=== PATIENT | male | born 1985 | race Caucasian/White ===

== ENCOUNTER 2018-06-13 07:50 | Emergency (ER) | payer BC, SELFPAY ==
[2018-06-13 07:51] VITALS: BP 147/92; PULSE 74; RESP 14; TEMP 36.4; O2SAT 100; BMI 27.3
--- NOTE | 2018-06-13 08:20 | RAD_ITS ---
STUDY: X-RAY CHEST REASON FOR EXAM: Male, 33 years old. Headache, shortness of breath TECHNIQUE: PA and lateral views of the chest. COMPARISON: 09/03/2014 FINDINGS: The lungs are clear and expanded. There is no demonstrated pleural abnormality. Normal size heart. Normal mediastinum and loretta. Normal visualized pulmonary arteries. Normal visualized aortic arch and descending thoracic aorta. Normal visualized thoracic spine. Normal visualized ribs, clavicles, and shoulders. There is no demonstrated abnormality of the visualized soft tissue structures of the upper abdomen. RAD/Chest PA and Lateral IMPRESSION: Normal x-ray examination of the chest. Electronically Signed: Braxton Dumont DO at 9:30 EDT Tel , Service support ,
[2018-06-13] MEDS: proCHLORPERazine 10 MG/2 ML Vial IV (08:36)
[2018-06-13] MEDS: 0.9% Normal Saline 1,000 ML 999 ML IV (08:37)
[2018-06-13] MEDS: DiphenhydrAMINE 50 MG/ML Syringe 25 MG IV (08:37)
[2018-06-13] MEDS: Ketorolac 30 MG/ML Syringe IV (08:37)
--- NOTE | 2018-06-13 09:39 | ED.VISSUMM ---
- ER Visit Summary Date of Service: 06/13/18 Chief Complaint: Headache History of Present Illness: The patient is a 33 M who presents with a headache. Headache began about 2 days ago and gradually worsened over the course of the day. He currently rates his pain as severe. He reports nausea lightheadedness and light sensitivity. No numbness tingling or weakness. No vomiting. No fevers. No direct injury trauma or fall. He also complains of some muscle aches and joint aches. He reports some congestion rhinorrhea cough and shortness of breath with exertion. Physical Examination: Afebrile vitals are unremarkable Moist mucous membranes Heart regular rate and rhythm Lungs are clear Abdomen soft Alert oriented No focal or lateralizing neurological deficits normal strength and sensation no ataxia Neck is supple with no meningismus Test Results: Two-view chest x-ray normal Emergency Department Course and Treatment: Patient's presentation is suggestive of viral syndrome with migraine. He has no meningeal signs. He is not febrile. He has a normal neurological exam. Chest x-ray was obtained given his report of cough and shortness of breath. This is normal. He was treated with IV saline, Toradol, Compazine, Benadryl with complete resolution of symptoms. On reevaluation he states he feels good and has absolutely no pain. He was advised to follow-up as an outpatient. He understands return for new or worsening symptoms and was instructed on specific signs and symptoms to monitor for and was discharged home. Treatment Plan: [] Disposition: Discharge Impression: Headache Viral syndrome This note was generated with [employer] dictation software. It may contain incorrect words, spelling, and punctuation that were not noted in review of the chart prior to signing ED Disposition - Plan for ED Patient: Chief Complaint: Headache Referrals: Care Physician,No Primary [Primary Care Provider] -
--- NOTE | 2018-06-13 09:41 | ED.DEP ---
ED Disposition - Plan for ED Patient: Chief Complaint: Headache Instructions: ED Headache Migraine, ED Viral Syndrome Referrals: Care Physician,No Primary [Primary Care Provider] -
[2018-06-13 09:57] VITALS: BP 118/63; PULSE 64; RESP 17; O2SAT 97
== END 2018-06-13 09:58 | disposition home or self-care (01) ==
LOC: ED 08:26
PROVIDERS: Emergency Provider Emergency Medicine
DX: R51 Headache (principal); B34.9 Viral infection, unspecified; R68.83 Chills (without fever); J34.89 Other specified disorders of nose and nasal sinuses; R06.09 Other forms of dyspnea; R05 Cough; R11.0 Nausea; M79.1 Myalgia; R42 Dizziness and giddiness; R09.81 Nasal congestion; H53.149 Visual discomfort, unspecified; Z72.0 Tobacco use
CPT/HCPCS: 71046; 96361; 96374; 96375; 99283; J7030; A4216

== ENCOUNTER 2019-02-23 15:25 | Emergency (ER) | payer BC, SELFPAY ==
[2019-02-23 15:25] VITALS: BP 138/92; PULSE 99; RESP 16; TEMP 36.9; O2SAT 97; BMI 29.3
--- NOTE | 2019-02-23 16:14 | RAD_ITS ---
STUDY: X-RAY - CERVICAL SPINE REASON FOR EXAM: Male, 33 years old. Neck and back pain TECHNIQUE: 3 view(s) of the cervical spine were obtained. COMPARISON: None FINDINGS: Normal anterior atlantoaxial articulation. Normal odontoid process. Normal cervical lordosis. Normal vertebral bodies and endplates. Normal disc space heights. No subluxation. The soft tissue structures are unremarkable. RAD/Cerv Spine 2 or 3 Views IMPRESSION: Normal x-ray examination of the visualized cervical spine. Electronically Signed: Khurram Ramirez MD at 16:45 EDT , Service support ,
--- NOTE | 2019-02-23 16:14 | RAD_ITS ---
STUDY: X-RAY - THORACIC SPINE REASON FOR EXAM: Male, 33 years old. Back pain for a couple days TECHNIQUE: 3 view(s) of the thoracic spine were obtained. COMPARISON: None. FINDINGS: Normal kyphosis of the thoracic spine. There is no substantial scoliosis. There is multilevel endplate spondylosis of the thoracic vertebrae. Normal disc space heights. The soft tissue structures are unremarkable. RAD/Thoracic Spine 3 Views IMPRESSION: Mild thoracic spondylosis. Otherwise normal. Electronically Signed: Khurram Ramirez MD at 16:45 EDT , Service support ,
--- NOTE | 2019-02-23 16:17 | ED.DCSUM_ITS ---
- ER Visit Summary Date of Service: 02/23/19 Chief Complaint: Neck and back pain History of Present Illness: The patient is a 33 M presenting with neck and back pain. Patient states this started approximately a month ago. He has pain in his lower neck and upper back when he lifts his head and turns his head. He states he does a lot of turning left and right while at work. He has taken aspirin at home with minimal relief. He states around a month ago he went to [facility] and was given muscle relaxers which improved his pain. He denies numbness or weakness. Denies fever. Denies trauma. He does not currently have a primary care physician. He denies other complaints. Physical Examination: Vitals are stable. Patient is afebrile. Alert no acute distress. HEENT exam is unremarkable. Neck is bilateral paraspinal cervical muscle tenderness, no midline tenderness Lungs are clear and equal bilaterally. Heart is regular rate and rhythm. Back: Thoracic paraspinal muscle tenderness with no midline tenderness Extremities are unremarkable. Skin is warm and dry. No focal neurologic deficit. Normal strength and sensation Remainder of exam is unremarkable. Emergency Department Course and Treatment: Patient was given Toradol, Norflex IM. Cervical spine x-ray shows no acute process. Thoracic spine x-ray showed mild thoracic spondylosis. Otherwise normal. Patient is given prescription for Naprosyn and Flexeril. He is advised to follow-up with Dr. Rodriguez loss prevention agent for no doc. Advised return to ED for worsening complaints. Disposition: Discharge home Impression: Cervical and thoracic strain This note was generated with [employer] dictation software. It may contain incorrect words, spelling, and punctuation that were not noted in review of the chart prior to signing ED Disposition - Plan for ED Patient: Instructions: ED Neck Back Pain General Prescriptions: Naproxen [Naprosyn] 500 mg PO BID PRN #20 tablet Cyclobenzaprine [Flexeril] 10 mg PO TID PRN #20 tablet PRN Reason: Muscle Spasm Referrals: Sukumar Rodriguez III, MD [STAFF PHYSICIAN] -
[2019-02-23] MEDS: Orphenadrine 60 MG/2 ML Ampul IM (16:39)
[2019-02-23] MEDS: Ketorolac 60 MG/2 ML Vial IM (16:39)
--- NOTE | 2019-02-23 16:51 | ED.DEP ---
ED Disposition - Plan for ED Patient: Instructions: ED Neck Back Pain General Prescriptions: Naproxen [Naprosyn] 500 mg PO BID PRN #20 tablet Cyclobenzaprine [Flexeril] 10 mg PO TID PRN #20 tablet PRN Reason: Muscle Spasm Referrals: Sukumar Rodriguez III, MD [STAFF PHYSICIAN] -
[2019-02-23 16:57] VITALS: PULSE 74; RESP 18; O2SAT 99
== END 2019-02-23 16:59 | disposition home or self-care (01) ==
LOC: ED 16:49
PROVIDERS: Emergency Provider Emergency Medicine
DX: S16.1XXA Strain of muscle, fascia and tendon at neck level, initial encounter (principal); S29.012A Strain of muscle and tendon of back wall of thorax, initial encounter; X58.XXXA Exposure to other specified factors, initial encounter; Y93.9 Activity, unspecified; Y92.9 Unspecified place or not applicable; Z72.0 Tobacco use
CPT/HCPCS: 72040; 72072; 96372; 99282

== ENCOUNTER 2019-04-27 23:18 | Emergency (ER) | payer BC, SELFPAY ==
[2019-04-27 23:19] VITALS: BP 137/98; PULSE 87; RESP 17; TEMP 36.6; O2SAT 99; BMI 24.4
--- NOTE | 2019-04-27 23:48 | ED.VISSUMM ---
- ER Visit Summary Date of Service: 04/27/19 Chief Complaint: Back pain History of Present Illness: The patient is a 33 M with back pain. Chief complaints of chest pain, he denies any chest pain his pain is left back region and it usually starts about 30 minutes to an hour into his shift he does quite a bit of repetitive motion at work. It is worse with twisting turning or moving his back in certain directions. Physical Examination: Otherwise normal exam there is tenderness to palpation over the mid trapezius region, there are a few trigger points, pain is quite mechanical and easily reproducible. Emergency Department Course and Treatment: I showed the patient some stretches, I will treat with muscle relaxants. No need for x-rays or cardiac work-up. Stable condition Impression: [Thoracic strain] This note was generated with [employer] dictation software. It may contain incorrect words, spelling, and punctuation that were not noted in review of the chart prior to signing ED Disposition - Plan for ED Patient: Disposition: Home or Assisted Living Instructions: ED Strain Muscle Ext Prescriptions: Naproxen [Naprosyn] 500 mg PO BID PRN #20 tab cycloBENZAPRine HCl [Flexeril] 10 mg PO TID PRN #20 tab PRN Reason: Muscle Spasm Referrals: Care Physician,No Primary [Primary Care Provider] - 3-5 Days
[2019-04-27 23:56] VITALS: BP 136/70; PULSE 81; RESP 18; O2SAT 96
== END 2019-04-27 23:57 | disposition home or self-care (01) ==
PROVIDERS: Emergency Provider Emergency Medicine
DX: S29.012A Strain of muscle and tendon of back wall of thorax, initial encounter (principal); X50.3XXA Overexertion from repetitive movements, initial encounter; Y93.9 Activity, unspecified; Y92.89 Other specified places as the place of occurrence of the external cause; Y99.0 Civilian activity done for income or pay; Z72.0 Tobacco use
CPT/HCPCS: 99282

== ENCOUNTER 2019-11-04 12:30 | Emergency (ER) | payer SELFPAY ==
[2019-11-04 12:30] VITALS: BP 136/67; PULSE 99; RESP 18; TEMP 36.6; O2SAT 98; BMI 25.0
--- NOTE | 2019-11-04 12:57 | ED.VIS.GEN ---
History of Present Illness Chief Complaint: General Illness Informant: Patient Onset: Days - 2 Current Severity: Moderate Maximum Severity: Moderate Narrative: Patient has a runny nose, cough and congestion, he developed a gradual onset of headache that started few days ago, he has had prior chronic headaches he describes them as aching although sharp stabbing headaches associated with some photophobia but no neurological symptoms. Past Medical History - Allergies and Home Meds Allergies/Adverse Reactions: Allergies No Known Allergies Allergy (Verified 11/04/19 12:32) Primary Care Physician: Care Physician,No Primary [Primary Care Provider] - Past Medical History: - - Headaches Smoking Status: Current every day smoker Review of Systems General: Denies: Fever Eyes: Reports: - - Photophobia. Denies: Visual changes - bilaterally Cardiovascular: Denies: Chest pain Gastrointestinal: Reports: Nausea. Denies: Abdominal pain Neurological: Reports: Headache. Denies: Weakness, Parasthesia, Numbness Physical Exam Vital Signs/Narrative: Vital Signs Temp Pulse Resp BP Pulse Ox 11/04/19 12:30 98 F 99 18 136/67 H 98 General: Well nourished, No Acute Distress Head: Normocephalic, Atraumatic Eyes: Perrl, EOMI ENT: Moist mucous membranes, - - There is rhinorrhea, swollen nasal turbinates and some postnasal drip. Cardiovascular: Regular rate, Regular rhythm Respiratory: No distress, CTA bilaterally Abdomen: Soft, Nontender Back: Nontender, Normal Inspection Extremities: Nontender, No edema Skin: Normal color, No rash Neurological: Alert, Oriented x3, Normal Strength, Normal Sensation, Normal DTR Diagnostic/Tx/Re-eval - Medical Decision Making Patient has a upper respiratory infection which is likely viral, he also has a gradual onset of his chronic recurrent cephalgia. I will treat his headache, otherwise I told him the the upper respiratory symptoms is likely viral and he can get symptomatic treatment. Discharge stable condition ED Disposition - Plan for ED Patient: Disposition: Home or Assisted Living Diagnosis: Headache Instructions: Migraines and Cluster Headaches Prescriptions: Naproxen [Naprosyn] 500 mg PO BID PRN #20 tab Prescription Printed Referrals: Care Physician,No Primary [Primary Care Provider] - 3-5 Days
[2019-11-04] MEDS: Ketorolac 30 MG/ML Syringe IM (13:05)
[2019-11-04] MEDS: DiphenhydrAMINE 50 MG/ML Syringe 25 MG IM (13:05)
[2019-11-04] MEDS: Metoclopramide 10 MG/2 ML Vial IM (13:05)
== END 2019-11-04 13:21 | disposition home or self-care (01) ==
PROVIDERS: Emergency Provider Emergency Medicine
DX: R51 Headache (principal); J06.9 Acute upper respiratory infection, unspecified; F17.200 Nicotine dependence, unspecified, uncomplicated
CPT/HCPCS: 99282

== ENCOUNTER 2022-04-26 14:28 | Emergency (ER) | payer MEDICAID, SELFPAY ==
[2022-04-26 14:29] VITALS: BP 128/85; PULSE 76; RESP 16; TEMP 36.3; O2SAT 100; BMI 31.8
--- NOTE | 2022-04-26 14:37 | ED.VIS.BACK ---
HPI History of Present Illness Chief Complaint: Back Informant: patient Onset/Context/Timing Onset: Yesterday Context: Gradual Onset Injury: - (Lifting heavy objects) Timing: Continuous (Continuous pain but waxes and wanes in severity) Quality: Aching and Throbbing Location: Thoracic Current Severity: Mild Maximum Severity: Moderate Narrative Narrative: Patient presents secondary to right-sided upper back pain. He states he was lifting some heavy objects yesterday and felt some tightness afterwards. He drives a semi-truck for work and his employer stated he had to have a note stating he was okay to go back to work. He denies weakness or paresthesias. PFSH PFSH Medical History no medical history no medical history Home Medications naproxen 500 mg PO BID PRN #20 tab 11/04/19 [Rx Last Taken Unknown] naproxen [Naprosyn] 500 mg PO BID PRN #20 tab 04/26/22 [Rx Last Taken Unknown] Allergy/AdvReac Type Severity Reaction Status Date / Time No Known Allergies Allergy Verified 04/26/22 14:29 Social History Smoking Status: Current every day smoker tobacco type: cigarettes ROS ROS ED Constitutional Constitutional ED: Denies chills or fever(s) Eyes Eyes: Denies change in vision ENT ENT ED: Denies sore throat Cardiovascular Cardiovascular: Denies chest pain Respiratory/Chest Respiratory/Chest: Denies cough or dyspnea Gastrointestinal Gastrointestinal: Denies abdominal pain, nausea or vomiting Musculoskeletal Musculoskeletal: Reports back pain Integumentary Denies rash Neurologic Neurologic: Denies headache(s), paresthesias or weakness Allergic/Immunologic Allergic/Immunologic ED: Denies urticaria EXAM Physical Exam Const Vital Signs: 04/26/22 14:29 04/26/22 14:49 Temperature 97.4 F L Temperature Source Temporal Pulse Rate 76 84 Respiratory Rate 16 19 H Blood Pressure 128/85 H Blood Pressure Mean 99 Pulse Ox 100 99 Oxygen Delivery Method Room Air Positive well nourished and well developed General Appearance ED: well developed HEENT Reports moist mucous membranes Eyes PERRL and EOMs intact bilaterally Neck supple Resp normal respiratory effort and clear to auscultation bilaterally Cardio regular rate and regular rhythm GI normal to inspection, nondistended, normoactive bowel sounds, soft to palpation and non-tender Back/Spine Back/Spine Narrative: Reproducible tenderness in the right thoracic region medial and inferior to the scapula. No overlying skin changes. Full range of motion of the extremities without difficulty. Extremity normal to inspection Neuro oriented x3 Sensorium / Orientation: alert MDM MDM Treatment and Re-Evaluation Narrative: Patient will be given a Lidoderm patch here and prescription for naproxen will be written. He is written a note that he can return to work tomorrow. Discharge Plan Triage Chief Complaint: Back ED Provider: Jennifer Aden Dx/Rx/DC Orders Clinical Impression: Musculoskeletal back pain Instructions: ED Back Pain (Acute or Chronic) Prescriptions: New naproxen [Naprosyn] 500 mg tablet 500 mg PO BID PRN (Reason: pain) Qty: 20 RF: 0 No Action naproxen 500 MG tablet 500 mg PO BID PRN Qty: 20 RF: 0 Stand Alone Forms: ED Work / School Excuse Primary Care Provider: Care Physician,No Primary Referrals: Isabel Brito MD [STAFF PHYSICIAN] - As Needed Care Physician,No Primary [Primary Care Provider] - Disposition Disposition: Home, Self Care
[2022-04-26] MEDS: Naproxen 500 MG Tablet PO (14:48)
[2022-04-26] MEDS: Lidocaine 5% Patch 1 PATCH TOPICAL (14:48)
[2022-04-26 14:49] VITALS: PULSE 84; RESP 19; O2SAT 99
== END 2022-04-26 14:53 | disposition home or self-care (01) ==
LOC: ED 14:50
PROVIDERS: Emergency Provider Emergency Medicine; Visit Provider Emergency Medicine
DX: M54.9 Dorsalgia, unspecified (principal); F17.210 Nicotine dependence, cigarettes, uncomplicated
CPT/HCPCS: 99284

== ENCOUNTER 2022-07-24 04:40 | Emergency (ER) | payer MEDICAID, SELFPAY ==
[2022-07-24 04:41] VITALS: BP 136/100; PULSE 100; RESP 16; TEMP 36.6; O2SAT 97; BMI 29.8
--- NOTE | 2022-07-24 04:53 | ED.VIS.DENTA ---
HPI History of Present Illness Chief Complaint: Dental Informant: patient Onset/Context/Timing Onset: Days (3) Context: Gradual Onset Timing: Continuous Quality: Sharp, stabbing Location: Right upper molars Worsened by: Nothing Relieved by: - (Nothing) Associated Symptoms Assocated Symptom - Dental: jaw swelling; Negative for fever, face swelling, cold sensitivity or hot sensitivity Narrative Narrative: Patient presents with right upper dental pain that has been getting worse over the last 3 days. Patient states that today it started swelling over the right upper molar. Patient describes his pain as sharp and stabbing. Patient states nothing makes it better nothing makes it worse. Patient denies any fevers or chills. Patient does admit to hot and cold sensitivity. Patient states his tooth broke approximately 2 weeks ago. Patient states he has been unable to get into see his dentist. Patient admits to nausea but denies any vomiting. PFSH PFSH Medical History no medical history no medical history Home Medications naproxen 500 mg tablet 500 mg PO BID PRN #20 tabs 11/04/19 [Rx Last Taken Unknown] naproxen 500 mg tablet (Naprosyn) 500 mg PO BID PRN pain #20 tabs 04/26/22 [Rx Last Taken Unknown] penicillin V potassium 500 mg tablet 500 mg PO 4X/DAY #40 tabs 07/24/22 [Rx Last Taken Unknown] Allergy/AdvReac Type Severity Reaction Status Date / Time No Known Allergies Allergy Verified 07/24/22 04:42 Surgical History no surgical history no surgical history Social History Smoking Status: Current every day smoker tobacco type: cigarettes ROS ROS ED Constitutional Constitutional ED: Denies chills or fever(s) Eyes Eyes: Denies blurry vision or change in vision ENT ENT ED: Denies rhinorrhea or sore throat Cardiovascular Cardiovascular: Denies chest pain or palpitations Respiratory/Chest Respiratory/Chest: Denies cough or dyspnea Gastrointestinal Gastrointestinal: Reports nausea; Denies vomiting Genitourinary Genitourinary ED: Denies dysuria or hematuria Musculoskeletal Musculoskeletal: Denies back pain or neck pain Integumentary Denies abscess or rash Neurologic Neurologic: Denies headache(s) or weakness Allergic/Immunologic Allergic/Immunologic ED: Denies mouth swelling or urticaria EXAM Physical Exam Const Vital Signs: 07/24/22 04:41 Temperature 97.9 F Temperature Source Oral Pulse Rate 100 Respiratory Rate 16 Blood Pressure 136/100 H Blood Pressure Mean 112 Pulse Ox 97 Oxygen Delivery Method Room Air Positive well nourished and well developed General Appearance ED: well developed HEENT HEENT Narrative: There are dental caries noted over the right upper and lower molars. There is gingival edema around the right upper second molar. There is no fluctuance. There is no discharge or drainage. Mouth ED: Yes oral and palatal mucosa normal Mouth: oral and palatal mucosa normal Teeth and Gingiva: caries Throat: posterior oropharynx normal Eyes PERRL and EOMs intact bilaterally Neck supple and no JVD General: Negative for anterior neck swelling, tenderness or submandibular swelling Lymph Lymphatic: no lymphadenopathy noted Neuro oriented x3, CN's II-XII intact bilaterally, moves all extremities, no focal motor deficits and no sensory deficits noted Sensorium / Orientation: alert Motor Exam: strength 5/5 throughout Psych mental status grossly normal MDM MDM MDM Narrative Medical decision making narrative: Patient was given a dose of Pen-Vee K here. Patient was given a prescription for Pen-Vee K. Patient was instructed to take Tylenol or ibuprofen as needed for pain. Patient was instructed to follow-up with his dentist in 5 to 7 days. Patient understood and was agreeable with the plan. All questions were answered. Discharge Plan Triage Chief Complaint: Dental ED Provider: Yariel Valero Dx/Rx/DC Orders Clinical Impression: Infected dental caries Instructions: ED Dental Cavity, ED Dental Abscess Prescriptions: New penicillin V potassium 500 mg tablet 500 mg PO 4X/DAY Qty: 40 0RF No Action naproxen 500 MG tablet 500 mg PO BID PRN Qty: 20 0RF naproxen [Naprosyn] 500 mg tablet 500 mg PO BID PRN (Reason: pain) Qty: 20 0RF Primary Care Provider: Care Physician,No Primary Referrals: Care Physician,No Primary [Primary Care Provider] - Dentist,Your [STAFF PHYSICIAN] - 3-5 Days Disposition Disposition: Home, Self Care
[2022-07-24] MEDS: Penicillin Vk 250 MG Tablet 500 MG PO (05:02)
[2022-07-24] MEDS: Naproxen 250 MG Tablet 500 MG PO (05:03)
== END 2022-07-24 05:09 | disposition home or self-care (01) ==
LOC: ED 05:04
PROVIDERS: Emergency Provider Emergency Medicine; Visit Provider Emergency Medicine
DX: K02.9 Dental caries, unspecified (principal); R11.0 Nausea; F17.210 Nicotine dependence, cigarettes, uncomplicated

== ENCOUNTER 2022-07-24 16:37 | Emergency (ER) | payer MEDICAID, SELFPAY ==
[2022-07-24 16:38] VITALS: BP 136/96; PULSE 96; RESP 15; TEMP 36.8; O2SAT 96; BMI 33.0
--- NOTE | 2022-07-24 16:55 | EDS_ITS ---
HPI History of Present Illness Chief Complaint: Dental Informant: patient Onset/Context/Timing Onset: Days (3 days) Context: Gradual Onset Current Severity: Moderate Maximum Severity: Severe Narrative Narrative: Patient presents with right-sided dental pain. His tooth broke about 2 weeks ago. Over the past 3 days has had increased dental pain. He was seen in the emergency room at 5:00 this morning and started on Pen-Vee K. He is taken 2 doses. He is taking 2 tabs of Motrin and 1 tab of Tylenol every 3-4 hours. He presents back stating his pain is not controlled. He was unable to find a dentist today as it is Labor Day and offices are closed. He also found out that his dentist is currently out of business and he needs referral to a new dentist. PFSH PFSH Medical History no medical history no medical history Home Medications hydrocodone-acetaminophen 5-325mg 5mg-325mg 1 tab PO Q6H PRN pain 1 day #3 tabs 07/24/22 [Rx Last Taken Unknown] naproxen 500 mg tablet (Naprosyn) 500 mg PO BID PRN pain #20 tabs 07/24/22 [Rx Last Taken Unknown] penicillin V potassium 500 mg tablet 500 mg PO 4X/DAY #40 tabs 07/24/22 [Rx Last Taken Unknown] Allergy/AdvReac Type Severity Reaction Status Date / Time No Known Allergies Allergy Verified 07/24/22 16:38 Social History Smoking Status: Current every day smoker tobacco type: cigarettes ROS ROS ED Constitutional Constitutional ED: Denies chills or fever(s) Eyes Eyes: Denies change in vision or discharge from eye(s) ENT ENT ED: Reports other Details: Right-sided dental pain ; Denies discharge from eye(s), rhinorrhea or sore throat Cardiovascular Cardiovascular: Denies chest pain or palpitations Respiratory/Chest Respiratory/Chest: Denies cough or dyspnea Gastrointestinal Gastrointestinal: Denies abdominal pain, nausea or vomiting Genitourinary Genitourinary ED: Denies difficulty urinating or dysuria Musculoskeletal Musculoskeletal: Denies back pain or extremity pain Integumentary Denies Abrasions or rash Neurologic Neurologic: Denies headache(s) or weakness Psychiatric Psychiatric: Denies anxiety or depression Allergic/Immunologic Allergic/Immunologic ED: Denies lip swelling or urticaria EXAM Physical Exam Narrative Exam Narrative: Patient sitting upright in bed no acute distress. He speaking with full sentences and tolerating secretions well. He has no facial edema or erythema. Const Vital Signs: 07/24/22 16:38 Temperature 98.2 F Temperature Source Temporal Pulse Rate 96 Respiratory Rate 15 Blood Pressure 136/96 H Blood Pressure Mean 109 Pulse Ox 96 Oxygen Delivery Method Room Air Positive well nourished and well developed General Appearance ED: well developed HEENT Reports normocephalic and head/scalp atraumatic HEENT Narrative: Right upper and lower molars decayed with surrounding gum edema. Posterior pharynx is normal. Eyes PERRL and EOMs intact bilaterally Neck supple Chest Wall inspection of chest normal and palpation of chest normal Resp normal respiratory effort and clear to auscultation bilaterally Cardio regular rate and regular rhythm GI Palpation: soft Extremity normal to inspection Neuro oriented x3 and no sensory deficits noted Sensorium / Orientation: alert Motor Exam: strength 5/5 throughout Psych mental status grossly normal Skin no rashes or lesions noted MDM MDM MDM Narrative Medical decision making narrative: Patient be written for naproxen. He was advised not to take Motrin with this. He did drive himself to the emergency room. I will write him for 3 tabs of [place] to help with with pain control and sleep. He is requesting a work note f or tomorrow as we can find a dentist to follow-up with. Discharge Plan Triage Chief Complaint: Dental ED Provider: Jennifer Aden Dx/Rx/DC Orders Clinical Impression: Infected dental caries Instructions: ED Dental Cavity Prescriptions: New naproxen [Naprosyn] 500 mg tablet 500 mg PO BID PRN (Reason: pain) Qty: 20 0RF hydrocodone-acetaminophen 5-325 mg tablet 1 tab PO Q6H PRN (Reason: pain) 1 Days Qty: 3 0RF Discontinued naproxen 500 MG tablet 500 mg PO BID PRN Qty: 20 0RF naproxen [Naprosyn] 500 mg tablet 500 mg PO BID PRN (Reason: pain) Qty: 20 0RF No Action penicillin V potassium 500 mg tablet 500 mg PO 4X/DAY Qty: 40 0RF Stand Alone Forms: ED Work / School Excuse Primary Care Provider: Care Physician,No Primary Referrals: Care Physician,No Primary [Primary Care Provider] - Activity Restrictions/Additional Instructions: Dental referral list provided. Disposition Disposition: Home, Self Care
[2022-07-24] MEDS: Naproxen 500 MG Tablet PO (17:10)
== END 2022-07-24 17:12 | disposition home or self-care (01) ==
LOC: ED 17:08
PROVIDERS: Emergency Provider Emergency Medicine; Visit Provider Emergency Medicine
DX: K02.9 Dental caries, unspecified (principal); F17.210 Nicotine dependence, cigarettes, uncomplicated
CPT/HCPCS: 99283

== ENCOUNTER 2024-03-01 11:28 | Emergency (ER) | payer MEDICAID, SELFPAY ==
[2024-03-01 11:30] VITALS: BP 122/77; PULSE 75; RESP 14; TEMP 36.1; O2SAT 98
--- NOTE | 2024-03-01 11:37 | EKG12_ITS ---
Test Reason : DIZZINESS Blood Pressure : / mmHG Vent. Rate : 073 BPM Atrial Rate : 073 BPM P-R Int : 130 ms QRS Dur : 098 ms QT Int : 404 ms P-R-T Axes : 021 048 063 degrees QTc Int : 445 ms Normal sinus rhythm Septal infarct , age undetermined Abnormal ECG Confirmed by JESSICA CASTILLO, OLU ([id number]), field map editor PERI RED ([id number]) on 03/03/2024 11:08:09 AM Referred By: Confirmed By:OLU LOPEZ MD
[2024-03-01 11:56] VITALS: BMI 29.3
[2024-03-01] MEDS: 0.9% Normal Saline (1000mL) 1,000 ML 999 ML IV (11:57)
[2024-03-01 11:58] VITALS: BP 114/81; PULSE 72; RESP 16; TEMP 36.8; O2SAT 100
--- NOTE | 2024-03-01 12:09 | RAD_ITS ---
EXAM: XR ABDOMEN, 2 VIEWS AND XR CHEST, 1 VIEW CLINICAL INDICATION: chronic abd pain TECHNIQUE: Frontal view of the chest, frontal view of the abdomen/pelvis and upright or decubitus view of the abdomen. COMPARISON: No relevant prior studies available. FINDINGS: CHEST: LUNGS AND PLEURAL SPACES: Normal. No consolidation or edema. No pneumothorax. No effusion. HEART: Normal. Normal heart size. MEDIASTINUM: No mediastinal or hilar mass. ABDOMEN: INTRAPERITONEAL SPACE: No free air. GASTROINTESTINAL TRACT: Normal bowel gas pattern. ORGANS: Unremarkable as visualized. No organomegaly. No abnormal calcifications. TUBES, LINES AND DEVICES: None. BONES/JOINTS: No acute abnormality. SOFT TISSUES: No acute findings. RAD/Acute Abdomen Inc Chest IMPRESSION: Normal chest and abdominal series. Electronically Signed: Baldemar Mendoza MD at 13:09 EDT ,
[2024-03-01 12:20] LABS: Absolute Lymphocyte Count 3.69 X10^3/uL (0.83-4.51); Absolute Neutrophil Count 6.4 X10^3/uL (2.0-7.7); Basophil# 0.04 X10^3/uL; Basophil% 0.4 % (0-1); Eosinophil# 0.45 X10^3/uL; Eosinophils% 4.1 % (0-5); Hematocrit 49.1 % (40-54); Hemoglobin 16.2 g/dL (13.0-16.5); Lymphocyte # 3.69 X10^3/ul (0.83-4.51); Lymphocyte % 33.4 % (19-41); Mean Corpuscular Hgb 30.3 pg (27.0-32.0); Mean Corpuscular Volume 91.9 fL (80-94); Mean Platelet Vol. 13.7 fl (6.2-12.0); Monocyte% 4.5 % (0-10); NRBC Flagged by Analyzer 0 % (0-5); Neutrophil # 6.36 X10^3/uL (2.7-7.7); Neutrophil % 57.4 % (47-70); Platelet Count 166 K/mm3 (150-450); RBC Distribution Width CV 13.1 % (11.6-14.6); RBC Distribution Width SD 44.3 fl (35.1-43.9); Red Blood Count 5.34 M/mm3 (4.6-6.2); White Blood Count 11.1 K/mm3 (4.4-11.0)
[2024-03-01 12:25] LABS: International Normalized Ratio 1.1; Partial Thromboplast Time 32.3 Seconds (24.1-36.2); Prothrombin Time (Protime)PT. 13.7 SECONDS (11.7-14.9)
[2024-03-01 12:31] LABS: ALB/GLOB Ratio 1.3 RATIO (0.9-2.4); AST(SGOT) 25 U/L (15-37); Alanine Aminotransfer ALT/SGPT 28 U/L (16-61); Albumin, Serum 4.5 g/dL (3.2-5.0); Alkaline Phosphatase 96 U/L (45-117); Anion Gap 6 (5-15); BUN 10 mg/dL (7-18); BUN/Creat Ratio 10.4 RATIO (10-20); Calcium,Total 9.2 mg/dL (8.5-10.1); Chloride 110 mmol/L (98-107); Creatinine, Serum 0.96 mg/dL (0.70-1.30); EST Glomerular Filtration Rate 94 mL/min (>60); Est Glom Filt Rate - Afr Amer 113 mL/min (>60); Globulin 3.5 g/dL (2.2-4.2); Glucose 106 mg/dL (74-106); Lipase 23 U/L (13-75); Potassium 3.7 mmol/L (3.5-5.1); Sodium Level 136 mmol/L (136-145)
[2024-03-01 12:34] LABS: Lactic Acid 1.6 mmol/L (0.4-1.9)
[2024-03-01 13:10] LABS: Bacteria 0 SEEN /hpf (None Seen); Mucous, Urine 0 SEEN /hpf (<or=2+); Red Blood Cells-Urine 0 SEEN /hpf (0-5); Squamous Epithelial Cells - UA 0 SEEN /hpf (0-5); White Blood Cells 0 SEEN /hpf (0-5)
[2024-03-01 13:16] LABS: Color, Urine Yellow (Yellow); Glucose, Dipstick Normal (Normal); Ketone-Dipstick 5 mg/dl (Negative); Leukocyte Esterase-Dipstick 25 /ul (Negative); Nitrite-Dipstick Negative (Negative); Occult Blood-Urine Negative /ul (Negative); Protein-Dipstick 15 mg/dl (Negative); Specific Gravity, Urine 1.025 (1.002-1.030); Urine Bilirubin Dipstick Negative (Negative); Urine Clarity Clear (Clear); Urine Urobilinogen Normal (Normal)
--- NOTE | 2024-03-01 13:33 | EX.ED.DYSGE1 ---
HPI History of Present Illness Chief Complaint: Dizziness Narrative Narrative: Patient is a 38-year-old male who is presenting to the ER today with chief complaint of multiple symptoms going on for 2 to 3 years. Patient has been having intermittent diarrhea and constipation for years, intermittent rectal bleeding. Intermittent lightheaded dizziness. Patient had urinary frequency for the past 2-3 months. Patient has not seen any type of healthcare in the past 3-5 years. Daughter is at bedside. He has no PCP. Patient currently has no headache. Patient gets intermittently lightheaded, no vertigo. The main chief concern today was that patient was having abdominal cramping. Patient was sitting on a toilet. Patient was having more severe abdominal pain, he had lightheaded, nausea, clamminess, and almost had a near syncopal episode. Patient then had acute nosebleed from his right nostril with no trauma, denies picking his right nose. EMS was called. Patient was at home with his mother. When EMS arrived, patient felt much better, refused EMS transport to the ER but had his mom drive him to the ER for evaluation today. Patient takes no blood thinners. Patient is a smoker, 1 pack of cigarettes a day. Intermittent alcohol use. Patient denies drug use. Patient does work. No recent trauma. No acute complaints. Patient has family members that have diabetes, he has no diabetes that he is aware of. [facility] Medical History (Updated 03/01/24 @ 14:[address] Nilson Khan DO) Dizziness Home Medications dicyclomine 10 mg capsule 20 mg (2 x 10 mg) PO TIDAC #20 CAPSULES 03/01/24 [Rx Last Taken Unknown] ondansetron 4 mg disintegrating tablet 4 mg PO Q8H PRN PRN Nausea #10 tabs 03/01/24 [Rx Last Taken Unknown] Allergy/AdvReac Type Severity Reaction Status Date / Time No Known Allergies Allergy Verified 03/01/24 11:29 Social History Smoking Status: Current every day smoker tobacco type: cigarettes ROS ROS ED ROS Narrative REVIEW OF SYSTEMS: Unless otherwise stated in this report the patient's positive and negative responses for review of systems for constitutional, eyes, ENT, cardiovascular, respiratory, gastrointestinal, neurological, , musculoskeletal, and integument systems and related systems to the presenting problem are either stated in the history of present illness or were not pertinent or were negative for the symptoms and/or complaints related to the presenting medical problem. EXAM Physical Exam Narrative Exam Narrative: Vital signs reviewed and patient is not hypoxic. General: The patient appears well and in no apparent distress. Patient is resting comfortably on cart. Not toxic, lethargic, or listless. Skin: Warm, dry, no pallor noted. There is no rash noted. Head: Normocephalic, atraumatic; No carotid bruits bilateral. Eye: Normal conjunctiva, no drainage, EOMI. PERRL. Ears, Nose, Mouth, and Throat: oral mucosa is moist. Nares patent. Mouth without vesicles. Cardiovascular: Regular Rate and Rhythm, no murmurs, gallops, or rubs Respiratory: Patient is in no distress, no accessory muscle use, lungs are clear to auscultation, no wheezing, rales or rhonchi Back: non-tender, no CVA tenderness bilaterally to percussion. NO CTLS midline or paraspinal tenderness to palpation. GI: Soft, Mild diffuse tenderness to palpation, no masses appreciated. No rebound, guarding, or rigidity noted. Rectal exam. Outer external exam shows no external hemorrhoids, no rash, no abscess, no pineal cyst, no signs of fissure or fistula. Brown dry stool noted around his anus. Musculoskeletal: The patient has full range of motion of all extremities and joints with no difficulty. Patient has no motor, no sensory deficits. Neurological: A&O x4, normal speech, no focal neurological deficits. Psychiatric: Cooperative Const Vital Signs: 03/01/24 11:30 03/01/24 11:56 03/01/24 11:58 Temperature 97 F L 98.2 F Temperature Source Temporal Oral Pulse Rate 75 72 Respiratory Rate 14 16 Respiratory Effort Normal Non-Labored Respiratory Pattern Normal Blood Pressure 122/77 H 114/81 H Blood Pressure Mean 92 92 Pulse Ox 98 100 Oxygen Delivery Method Room Air Room Air 03/01/24 14:36 Temperature 98 F Temperature Source Pulse Rate 89 Respiratory Rate 16 Respiratory Effort Respiratory Pattern Blood Pressure 116/85 H Blood Pressure Mean 95 Pulse Ox 99 Oxygen Delivery Method MDM MDM MDM Narrative Medical decision making narrative: Patient felt better after 1 L of IV fluid. Patient has no signs of glucose in his lab work or his urine. Patient understands the importance of following up with a GI physician and patient understand the importance that he needs to have a colonoscopy. 3-3 years of abdominal pain. Patient was educated in using hydration, MiraLAX or magnesium citrate if needed. Patient will follow up with PCP, no questions at discharge. Patient is very thankful for help and time spent at bedside with him multiple times by myself. Lab Data Attestation: I reviewed the patient's lab results. Labs: Laboratory Results - last 24 hr 03/01/24 03/01/24 11:50 13:01 WBC 11.1 H RBC 5.34 Hgb 16.2 Hct 49.1 MCV 91.9 MCH 30.3 MCHC 33.0 RDW Std Deviation 44.3 H RDW Coeff of Jose C 13.1 Plt Count 166 MPV 13.7 H Immature Gran % (Auto) 0.200 Neut % (Auto) 57.4 Lymph % (Auto) 33.4 [place] % (Auto) 4.5 Eos % (Auto) 4.1 Baso % (Auto) 0.4 Absolute Neuts (auto) 6.4 Absolute Lymphs (auto) 3.69 Nucleated RBC % 0 PT 13.7 INR 1.1 APTT 32.3 Sodium 136 Potassium 3.7 Chloride 110 H Carbon Dioxide 20.0 L Anion Gap 6 BUN 10 Creatinine 0.96 Estim Creat Clear Calc 129.10 Est GFR (MDRD) Af Amer 113 Est GFR (MDRD) Non-Af 94 BUN/Creatinine Ratio 10.4 Glucose 106 Lactic Acid 1.6 Calcium 9.2 Total Bilirubin 0.80 AST 25 ALT 28 Alkaline Phosphatase 96 Total Protein 8.0 Albumin 4.5 Globulin 3.5 Albumin/Globulin Ratio 1.3 Lipase 23 Urine Color Yellow Urine Clarity Clear Urine pH 5.0 Ur Specific [place] 1.025 Urine Protein 15 H Urine Glucose (UA) Normal Urine Ketones 5 H Urine Occult Blood Negative Urine Nitrite Negative Urine Bilirubin Negative Urine Urobilinogen Normal Ur Leukocyte Esterase 25 H Urine RBC 0 SEEN Urine WBC 0 SEEN Ur Squamous Epith Cells 0 SEEN Urine Bacteria 0 SEEN Urine Mucus 0 SEEN Radiography X-Ray: Read by ED Physician (Chest x-ray shows no acute cardiopulmonary disease, no infiltrate, no effusion.) Diagnostic Testing: Clinical Impression(s) from Imaging Studies Acute Abdomen Series 03/01/24 12:09 IMPRESSION: Normal chest and abdominal series. Electronically Signed: Baldemar Mendoza MD at 13:09 EDT , EKG Initial EKG: Attestation: I personally reviewed and interpreted this EKG as follows: (EKG interpretation shows normal sinus rhythm at 73 beats a minute. Normal axis deviation. No acute ST elevation, no acute ectopy. QTc of 445) Discharge Plan Triage Chief Complaint: Dizziness ED Provider: Nilson Khan Dx/Rx/DC Orders Clinical Impression: Lightheadedness, Chronic abdominal pain, Rectal bleeding, Nausea, Urine frequency, Dehydration, mild Instructions: GI Bleeding Causes and Tests, Abdominal Pain, Understanding Rectal Bleeding, ED Chronic Pain, ED Dehydration (Adult), ED Dizziness, Uncertain Cause, ED Vomiting (Adult) Prescriptions: New ondansetron [ondansetron] 4 mg tablet,disintegrating 4 mg PO Q8H PRN PRN (Reason: Nausea) Qty: 10 0RF dicyclomine 10 mg capsule 20 mg PO TIDAC Qty: 20 0RF Primary Care Provider: Care Physician,No Primary Referrals: Dionisio Gautam DO [Med Staff - Active Staff] - Care Physician,No Primary [Primary Care Provider] - Activity Restrictions/Additional Instructions: Increase fluids at home. Use Zofran and Bentyl as needed for nausea and abdominal cramping. If you feel that you are having constipation, use MiraLAX once a day, then you may space it out to every 2 or 3 days if needed. Call your insurance company to see who you can see to establish PCP and a GI follow-up. Dr. Gautam has been referred to for GI. You may also follow-up with the health department in the county that you live in as well. Disposition Disposition: Home, Self Care Discharge Date/Time: 03/01/24 14:36
[2024-03-01 14:36] VITALS: BP 116/85; PULSE 89; RESP 16; TEMP 36.6; O2SAT 99
== END 2024-03-01 14:36 | disposition home or self-care (01) ==
PROVIDERS: Emergency Provider Emergency Medicine; Visit Provider Emergency Medicine
DX: R42 Dizziness and giddiness (principal); R10.9 Unspecified abdominal pain; F17.210 Nicotine dependence, cigarettes, uncomplicated; E86.0 Dehydration; K62.5 Hemorrhage of anus and rectum; R35.0 Frequency of micturition
CPT/HCPCS: 74022; 80053; 81001; 83605; 83690; 85025; 85610; 85730; 93005; 96360; 99283; J7030; A4216